=== PATIENT | male | born 1950 | race Caucasian/White ===

== ENCOUNTER → 2017-11-22 | Outpatient (CLI) | payer MEDICARE ==
--- NOTE | 2017-11-22 11:39 | US ---
EXAMINATION TYPE: US kidneys/renal and bladder DATE OF EXAM: 11/22/2017 COMPARISON: NONE CLINICAL HISTORY: N28.9 Disorder Of Kidney And Ureter. EXAM MEASUREMENTS: Right Kidney: 5.7 x 3.3 x 3.2 cm Left Kidney: 11.5 x 6.2 x 5.4 cm Right Kidney: small in size, cortical thinning, multiple cortical cysts with largest measuring 0.8cm Left Kidney: 1.5cm cyst inferior pole, visualization limited by rib shadowing Bladder: not fully distended, thickened irregular wall measuring 0.7cm Bilateral Jets seen: no Enlarged spleen There is no evidence for hydronephrosis at this point in time. No nephrolithiasis is seen. No joey s are identified. The urinary bladder is anechoic. Bilateral ureteral jets are seen. IMPRESSION: 1. Atrophic right kidney. 2. Simple cyst left kidney. Multiple cortical subcentimeter cyst right kidney. 3 splenomegaly. Spleen measures 13.8 cm craniocaudal.
--- NOTE | 2017-11-23 14:12 | US ---
EXAMINATION TYPE: US prostate transrectal DATE OF EXAM: 11/22/2017 COMPARISON: NONE CLINICAL HISTORY: N28.9 Disorder Of Kidney And Ureter. This examination was performed using the transrectal probe. EXAM MEASUREMENTS: Gland Size: 4.3 x 2.5 x 4.7cm Volume: 25.9ml Predicted PSA: 3.1 Actual PSA (if available):4.4 Mildly heterogeneous gland without any definite lesions seen at this time, multiple small calcificati ons seen within central zone. IMPRESSION: 1. No distinct lesion identified. Discordant actual PSA and predicted PSA. Continued monitoring recom mended. Consider tissue diagnosis if felt clinically indicated. Predicted PSA = volume x 0.12 ng/ml Calculated Volume = 0.5236 x L x W x H
== END | disposition home or self-care (01) ==
LOC: RADUSMAIN 08:21
PROVIDERS: ATTEND Family Medicine
DX: N28.1 Cyst of kidney, acquired (principal); N26.1 Atrophy of kidney (terminal); R97.20 Elevated prostate specific antigen [PSA]; R16.1 Splenomegaly, not elsewhere classified
CPT/HCPCS: 76770; 76872

== ENCOUNTER → 2017-12-20 | Outpatient (CLI) | payer MEDICARE ==
--- NOTE | 2017-12-20 09:38 | US ---
EXAMINATION TYPE: US scrotum with doppler. Grayscale and color Doppler Duplex imaging performed of franko lr scrotum. DATE OF EXAM: 12/20/2017 COMPARISON: NONE CLINICAL HISTORY: N40.1 Benign prostatic hyperplasia with lower.... Patient states hydrocele for 7 to 8 years EXAM MEASUREMENTS: TESTICLES: Right Testicle: 2.7 x 1.6 x 23 cm Left Testicle: 3.4 x 2.1 x 2.1 cm Doppler performed to assess for testicular vascularity; good bilateral color flow and waveforms are s een. There is no evidence of testicular torsion. Presence of hydroceles: Large ( 13.1 x 8.3 x 10.0 cm) hydrocele with loculated area. Left shows clark dence of loculated small hydrocele IMPRESSION: 1. Very large hydrocele. 2. Normal testicular blood flow
== END | disposition home or self-care (01) ==
LOC: RADUSWWP 07:38
PROVIDERS: ATTEND Urology
DX: N43.0 Encysted hydrocele (principal)
CPT/HCPCS: 76870; 93975

== ENCOUNTER 2018-06-04 08:24 | Day surgery (SDC) | payer MEDICARE ==
[2018-06-03 11:53] VITALS: BMI 21.7
[2018-06-04 08:42] VITALS: RESP 16; TEMP 97.3
[2018-06-04] MEDS ORDERED: LIDOCAINE 2% GEL 30 ML TUBE TOPICAL ONE (08:54)
[2018-06-04] MEDS ORDERED: BENZOCAINE SPRAY 1 CAN MUCOUS MEM ONE (08:54)
--- NOTE | 2018-06-04 09:02 | P.GSHP ---
History of Present Illness H&P Date: 06/04/18 Chief Complaint: Family history of esophageal cancer, GERD This a 67-year-old male referred from Osiris Dahl she's had complaints of GERD. He has a family history of esophageal cancer with his brother having esophageal cancer. He presents today for EGD. Past Medical History Past Medical History: GERD/Reflux Additional Past Medical History / Comment(s): gout, urinary retention, History of Any Multi-Drug Resistant Organisms: None Reported Past Surgical History: Hernia Repair Past Anesthesia/Blood Transfusion Reactions: No Reported Reaction Smoking Status: Never smoker - Past Family History Brother(s) Family Medical History: Cancer Father Family Medical History: Cancer Medications and Allergies Home Medications Medication Instructions Recorded Confirmed Type Milk Thistle Tab 240 mg PO BID 06/03/18 06/03/18 History Turericn Powder 1 applicate PO BID 06/03/18 06/03/18 History Allergies Allergy/AdvReac Type Severity Reaction Status Date / Time No Known Allergies Allergy Verified 06/04/18 08:33 Surgical - Exam Vital Signs Temp Pulse Resp BP Pulse Ox 97.3 F L 71 16 129/75 99 06/04/18 08:41 06/04/18 08:41 06/04/18 08:41 06/04/18 08:41 06/04/18 08:41 - General well developed, well nourished, no distress - Eyes PERRL - ENT normal pinna - Neck no masses - Respiratory normal expansion - Cardiovascular Rhythm: regular - Abdomen Abdomen: soft, non tender Assessment and Plan Assessment: GERD Family history of esophageal cancer We'll perform EGD.
--- NOTE | 2018-06-04 09:06 | P.OP ---
Date of Procedure: 06/04/18 Preoperative Diagnosis: GERD Family history of esophageal cancer Postoperative Diagnosis: Antral gastritis Small sliding hiatal hernia Mild esophagitis Procedure(s) Performed: EGD Anesthesia: MAC Surgeon: Myron Howe Pathology: other (Antrum, esophagus) Condition: stable Disposition: PACU Description of Procedure: The patient's placed on the endoscopy table lateral position. The patient did not wish to have IV sedation. He had Hurricaine spray applied to his oropharynx. The gastric scope was then placed oropharynx and passed into the esophagus and into the stomach. Scope was then placed through the pylorus. The first and second portion of the duodenum appeared normal. Scope was then brought back and stomach. The antrum was mildly inflamed. A biopsy was performed. The scope was then retroflexed and the remainder of the stomach appeared normal. There was a small sliding hiatal hernia. The GE junction was at 38 cm. The distal esophagus appeared mildly inflamed a biopsies performed. The proximal esophagus appeared normal. Scope was withdrawn for patient.
[2018-06-04 09:09] VITALS: BP 115/70; PULSE 68
== END 2018-06-04 09:36 | disposition home or self-care (01) ==
LOC: ORWHC2ENDO 08:24
PROVIDERS: ATTEND Surgery
DX: K29.50 Unspecified chronic gastritis without bleeding (principal); K21.0 Gastro-esophageal reflux disease with esophagitis; K44.9 Diaphragmatic hernia without obstruction or gangrene; Z80.0 Family history of malignant neoplasm of digestive organs; M10.9 Gout, unspecified; R33.9 Retention of urine, unspecified; Z79.899 Other long term (current) drug therapy
CPT/HCPCS: 43239; 88305

== ENCOUNTER → 2019-05-30 | Outpatient (CLI) | payer MEDICARE ==
--- NOTE | 2019-05-30 14:01 | US ---
EXAMINATION TYPE: US scrotum with doppler. Grayscale and color Doppler Duplex imaging performed of t adeline scrotum. DATE OF EXAM: 05/30/2019 COMPARISON: US 12/20/2017 CLINICAL HISTORY: N43.3 Hydrocele, unspecified. History of hydrocele. Pain and redness on the left. S welling. Patient states no one will drain the hydrocele EXAM MEASUREMENTS: TESTICLES: Right Testicle: 2.8 x 1.8 x 2.6 cm Left Testicle: 3.3 x 2.2 x 2.8 cm EPIDIDYMIS HEAD: Right Epididymis: Not visualized with certainty Left Epididymis: Not visualized with certainty Doppler performed to assess for testicular vascularity; good bilateral color flow and waveforms are s een. There is no evidence of testicular torsion. Presence of hydroceles: Yes, bilaterally Presence of varicoceles: Not visualized Anechoic area lateral to right testicle measuring 13.1 x 10.7 x 10.5 cm. Medial to the left testicle there is a complex, hypervascular area measuring 7.8 x 3.8 x 5.3 cm possible complex pyocele vs absce ss. Cystic area visualized left testicle measuring 0.4 x 0.4 x 0.5 cm. Left testicle is also hypervas cular IMPRESSION: 1. Large left complex pyocele or abscess on the left and left-sided orchitis. Findings were phoned to the ordering physician's office by the distribution agent Shira with recommendation for the patient to pro ceed to the ER at 1358 on 05/30/2019. 2. Intratesticular cystic lesion measures 5 mm, most commonly benign. Large right uncomplicated hydrocele.
== END | disposition home or self-care (01) ==
LOC: RADUSWWP 13:02
PROVIDERS: ATTEND Family Medicine
DX: N44.2 Benign cyst of testis (principal); N43.3 Hydrocele, unspecified
CPT/HCPCS: 76870; 93975

== ENCOUNTER → 2023-12-25 | Outpatient (CLI) | payer MEDICARE | END | disposition home or self-care (01) | LOC: LABWHC1 15:42 | PROVIDERS: ATTEND Family Medicine | DX: M10.9 Gout, unspecified (principal) | CPT/HCPCS: 36415; 84550 ==

== ENCOUNTER 2024-02-21 13:12 | Observation (INO) | payer MEDICARE ==
--- NOTE | 2024-02-21 13:36 | ED ---
Skin/Abscess/FB HPI - General Source: patient, RN notes reviewed Mode of arrival: ambulatory Limitations: no limitations <Ivone Vasquez - Last Filed: 02/21/24 13:34> - General Source: patient, RN notes reviewed, old records reviewed Mode of arrival: ambulatory Limitations: no limitations - History of Present Illness MD complaint: other (Significant swelling and edema of the left pinky finger) -: days(s) Location: L hand Severity scale (1-10): 10 Quality: constant Consistency: constant Improves with: none Worsens with: none Associated symptoms: denies other symptoms Treatments Prior to Arrival: none <Enrico Almeida - Last Filed: 02/27/24 18:29> - General Chief complaint: Skin/Abscess/Foreign Body Stated complaint: R Finger Infection Time Seen by Provider: 02/21/24 13:31 - History of Present Illness Initial comments: Quick [id number] male with a history of gout on allopurinol and colchicine presenting to the emergency department chief complaint of fifth digit erythema, pain and edema that has been worsening over the past 2 days. He denies fevers, chills, nausea, vomiting. (Ivone Vasquez) This is a 73-year-old male with history of gout coming in with significant left pinky finger swelling pain edema redness and tenderness with decreased range of motion (Enrico Almeida) - Related Data Home Medications Medication Instructions Recorded Confirmed Colchicine 0.6 mg PO BID 02/21/24 02/21/24 allopurinoL [Zyloprim] 450 mg PO DAILY 02/21/24 02/21/24 Allergies Allergy/AdvReac Type Severity Reaction Status Date / Time No Known Allergies Allergy Verified 02/21/24 19:13 Review of Systems ROS Other: All systems not noted in ROS Statement are negative. <Ivone Vasquez - Last Filed: 02/21/24 13:34> ROS Other: All systems not noted in ROS Statement are negative. <Enrico Almeida - Last Filed: 02/27/24 18:29> ROS Statement: Those systems with pertinent positive or pertinent negative responses have been documented in the HPI. Past Medical History Past Medical History: GERD/Reflux Additional Past Medical History / Comment(s): gout, urinary retention, History of Any Multi-Drug Resistant Organisms: None Reported Past Surgical History: Hernia Repair Additional Past Surgical History / Comment(s): right wrist Past Anesthesia/Blood Transfusion Reactions: No Reported Reaction Past Psychological History: No Psychological Hx Reported Smoking Status: Never smoker Past Alcohol Use History: Daily Past Drug Use History: Marijuana - Past Family History Brother(s) Family Medical History: Cancer Father Family Medical History: Cancer <StielerNikhilIvone - Last Filed: 02/21/24 13:34> General Exam Limitations: no limitations <StielerIvone - Last Filed: 02/21/24 13:34> General appearance: alert, in no apparent distress Head exam: Present: atraumatic, normocephalic, normal inspection Eye exam: Present: normal appearance, PERRL, EOMI. Absent: scleral icterus, conjunctival injection, periorbital swelling ENT exam: Present: normal exam, mucous membranes moist Neck exam: Present: normal inspection. Absent: tenderness, meningismus, lymphadenopathy Respiratory exam: Present: normal lung sounds bilaterally. Absent: respiratory distress, wheezes, rales, rhonchi, stridor Cardiovascular Exam: Present: regular rate, normal rhythm, normal heart sounds. Absent: systolic murmur, diastolic murmur, rubs, gallop, clicks GI/Abdominal exam: Present: soft, normal bowel sounds. Absent: distended, tenderness, guarding, rebound, rigid Extremities exam: Present: normal inspection, full ROM, normal capillary refill. Absent: tenderness, pedal edema, joint swelling, calf tenderness Back exam: Present: normal inspection Neurological exam: Present: alert, oriented X3, CN II-XII intact Psychiatric exam: Present: normal affect, normal mood Skin exam: Present: warm, dry, intact, normal color. Absent: rash <Enrico Almeida - Last Filed: 02/27/24 18:29> - General Exam Comments Initial Comments: Visual Physical Exam Vital signs reviewed General: Well-appearing, nontoxic, no acute distress. Head: Normocephalic, atraumatic Eyes: PERRLA, EOMI ENT: Airway patent Chest: Nonlabored breathing Skin: No visual rash, normal skin tone Neuro: Alert and oriented 3 Musculoskeletal: No gross abnormalities (Stieler,Ivone) Course <Enrico Almeida - Last Filed: 02/27/24 18:29> Vital Signs 02/21/24 02/21/24 13:28 19:22 Temperature 98.5 F Pulse Rate 75 78 Respiratory 16 18 Rate Blood Pressure 138/79 125/70 O2 Sat by Pulse 100 96 Oximetry - Reevaluation(s) Reevaluation #1: 02/21/24 18:52 Medical record is reviewed (Enrico Almeida) Reevaluation #2: 02/21/24 18:52 Patient symptoms unchanged (Enrico Almeida) Reevaluation #3: 02/21/24 18:52 Patient informed of results and questions answered (Enrico Almeida) Reevaluation #4: 02/21/24 18:53 Was pt. sent in by a medical professional or institution (ISAK Godinez, DIRECTOR OF PARTNER MARKETING, urgent care, hospital, or longterm...) When possible be specific @ -no Did you speak to anyone other than the patient for history (EMS, parent, family, police, friend...)? What history was obtained from this source @ -no Did you review nursing and triage notes (agree or disagree)? Why? @ -agree Are old charts reviewed (outside hosp., previous admission, EMS record, old EKG, old radiological studies, urgent care reports/EKG's, longterm records)? Report findings @ -yes Differential Diagnosis (chest pain, altered mental status, abdominal pain women, abdominal pain men, vaginal bleeding, weakness, fever, dyspnea, syncope, head ache, dizziness, GI bleed, back pain, seizure, CVA, palpatations, mental health, musculoskeletal)? @ -prior EKG interpreted by me (3pts min.). @ -no X-rays interpreted by me (1pt min.). @ -yes negative for acute disease CT interpreted by me (1pt min.). @ -no U/S interpreted by me (1pt. min.). @ -no What testing was considered but not performed or refused? (CT, X-rays, U/S, labs)? Why? @ -none What meds were considered but not given or refused? Why? @ -none Did you discuss the management of the patient with other professionals (professionals i.e. ISAK Godinez, DIRECTOR OF PARTNER MARKETING, lab, RT, psych nurse, social service assistant, special effects artist, teacher, hydrological technical officer, showcase trimmer)? Give summary @ -no Was smoking cessation discussed for >3mins.? @ -no Was critical care preformed (if so, how long)? @ -no Were there social determinants of health that impacted care today? How? (Homelessness, low income, unemployed, alcoholism, drug addiction, transportation, low edu. Level, literacy, decrease access to med. care, snf, rehab)? @ -none Was there de-escalation of care discussed even if they declined (Discuss DNR or withdrawal of care, Hospice)? DNR status @ -no What co-morbidities impacted this encounter? (DM, HTN, Smoking, COPD, CAD, Cancer, CVA, ARF, Chemo, Hep., AIDS, mental health diagnosis, sleep apnea, morb id obesity)? @ -none Was patient admitted / discharged? Hospital course, mention meds given and rou te, prescriptions, significant lab abnormalities, going to OR and other pertinent info. @ - 73 male to the ER for evaluation of significant left hand pain significant left pinky finger swelling redness, erythema or tenderness. Patient has findings and significant cellulitis need for orthopedic consultation for possible I&D of abscess. Patient be admitted for IV antibiotics Admitted Undiagnosed new problem with uncertain prognosis? @ -no Drug Therapy requiring intensive monitoring for toxicity (Heparin, Nitro, Insulin, Cardizem)? @ -no Were any procedures done? @ -no Diagnosis/symptom? @ -Pinky finger cellulitis versus inflammatory or infectious gout Acute, or Chronic, or Acute on Chronic? @ -Acute Uncomplicated (without systemic symptoms) or Complicated (systemic symptoms)? @ -Complicated Side effects of treatment? @ -no Exacerbation, Progression, or Severe Exacerbation? @ -exacerbation Poses a threat to life or bodily function? How? (Chest pain, [place], [place], pneumonia, PE, COPD, DKA, ARF, appy, cholecystitis, CVA, Diverticulitis, Homicidal, Suicidal, threat to staff... and all critical care pts) @ -no (Enrico Almeida) Medical Decision Making <Ivone Vasquez - Last Filed: 02/21/24 13:34> - Lab Data Result diagrams: 02/22/24 04:31 02/22/24 04:31 - Radiology Data Radiology results: report reviewed (X-ray fingers concerning for osteomyelitis), image reviewed <Enrico Almeida - Last Filed: 02/27/24 18:29> - Medical Decision Making I completed the quick note portion of this chart signed Ivone Vasquez PA-C (Ivone Vasquez) 73 male to the ER for evaluation of significant left hand pain significant left pinky finger swelling redness, erythema or tenderness. Patient has findings and significant cellulitis need for orthopedic consultation for possible I&D of abscess. Patient be admitted for IV antibiotics (Enrico Almeida) Critical Care Time Critical Care Time: Yes Total Critical Care Time: 31 <Enrico Almeida - Last Filed: 02/27/24 18:29> Disposition <Ivone Vasquez - Last Filed: 02/21/24 13:34> Is patient prescribed a controlled substance at d/c from ED?: No Time of Disposition: 19:00 <Enrico Almeida - Last Filed: 02/27/24 18:29> Clinical Impression: Cellulitis of left little finger, Gout, Osteomyelitis Disposition: ADMITTED IP TO THIS HOSP Condition: Serious
--- NOTE | 2024-02-21 14:56 | XR ---
EXAMINATION TYPE: XR finger RT DATE OF EXAM: 02/21/2024 CLINICAL HISTORY: pain TECHNIQUE: 3 views of the right digit are submitted. COMPARISON: None FINDINGS: Extensive soft tissue swelling is seen. There is bone destruction of the middle phalanx as well as the head of the proximal phalanx and base of the distal phalanx. Findings are highly suggesti ve of osteomyelitis. IMPRESSION: Bony destructive process highly suggestive of osteomyelitis. Correlate clinically. [facility], , 02/21/2024 2:54 PM
[2024-02-21] MEDS ORDERED: MORPHINE SULFATE 4 MG/ML SYRINGE IV PRN (18:47)
[2024-02-21] MEDS ORDERED: ONDANSETRON 4 MG/2 ML VIAL IVP PRN (18:47)
[2024-02-21] MEDS ORDERED: NALOXONE 0.4 MG/ML 1 ML VIAL IV PRN (18:47)
[2024-02-21 19:34] LABS: Anisocytosis Slight; Basophils % (A) 0 %; Eosinophils # (A) 0.1 k/uL (0-0.7); Eosinophils % (A) 2 %; HCT 38.9 % (39.0-53.0); HGB 12.4 gm/dL (13.0-17.5); Lymphocytes # (A) 0.6 k/uL (1.0-4.8); Lymphocytes % (A) 12 %; MCH 30.4 pg (25.0-35.0); MCHC 31.8 g/dL (31.0-37.0); MCV 95.6 fL (80.0-100.0); Macrocytosis Slight; Mean Platelet Volume 8.1; Monocytes # (A) 0.3 k/uL (0-1.0); Monocytes % (A) 6 %; Neutrophils # (A) 4.2 k/uL (1.3-7.7); Neutrophils % (A) 78 %; Platelet Count 459 k/uL (150-450); Poikilocytosis Slight; RBC 4.07 m/uL (4.30-5.90); RDW 18.9 % (11.5-15.5); WBC 5.4 k/uL (3.8-10.6)
[2024-02-21] MEDS: MORPHINE SULFATE 4 MG/ML SYRINGE IV STA (19:42)
[2024-02-21] MEDS: SODIUM CHLORIDE 0.9% 1,000 ML IV SCH (19:42)
[2024-02-21 19:55] LABS: ALT 31 U/L (4-49); AST 40 U/L (17-59); African American GFR (CKD) 74 (>60 ml/min/1.73 sqM); Albumin 4.3 g/dL (3.5-5.0); Alkaline Phosphatase 88 U/L (38-126); Anion Gap 6 mmol/L; Blood Urea Nitrogen 23 mg/dL (9-20); C Reactive Protein 2.1 mg/dL (<1.0); Calcium 9.2 mg/dL (8.4-10.2); Carbon Dioxide 25 mmol/L (22-30); Chloride 108 mmol/L (98-107); Glucose 87 mg/dL (74-99); Non-African American GFR(CKD) 64 (>60 ml/min/1.73 sqM); Potassium 4.3 mmol/L (3.5-5.1); Sodium 139 mmol/L (137-145); Total Bilirubin 0.6 mg/dL (0.2-1.3); Total Protein 7.9 g/dL (6.3-8.2)
[2024-02-21 21:31] LABS: Phosphorus 4.1 mg/dL (2.5-4.5); Uric Acid 4.6 mg/dL (3.5-8.5)
[2024-02-22 07:33] VITALS: RESP 16
[2024-02-22 09:12] LABS: Basophils # (A) 0.02 X 10*3/uL (0.00-0.10); Basophils % (A) 0.4 %; Eosinophils % (A) 1.8 %; HCT 30.4 % (39.6-50.0); HGB 10.2 g/dL (13.0-17.0); Lymphocytes # (A) 0.74 X 10*3/uL (0.90-5.00); Lymphocytes % (A) 13.2 %; MCH 33.1 pg (27.0-32.0); MCHC 33.6 g/dL (32.0-37.0); MCV 98.7 FL (80.0-97.0); Mean Platelet Volume 9.9 FL (9.5-12.2); Monocytes # (A) 0.47 X 10*3/uL (0.20-1.00); Monocytes % (A) 8.4 %; NRBC Per 100 WBC 0 X 10*3/uL (0.00-0.01); Neutrophils # (A) 4.22 X 10*3/uL (1.80-7.70); Neutrophils % (A) 75.3 %; Platelet Count 337 X 10*3/uL (140-440); RBC 3.08 X 10*6/uL (4.40-5.60); RDW 17.7 % (11.5-14.5)
[2024-02-22 09:17] LABS: ALT 31 U/L (10-49); AST 37 U/L (14-35); Albumin 3.5 g/dL (3.8-4.9); Alkaline Phosphatase 77 U/L (41-126); BUN/Creat Ratio 20.91 Ratio (12.00-20.00); Calcium 8.5 mg/dL (8.7-10.3); Carbon Dioxide 21.2 mmol/L (21.6-31.8); Chloride 107 mmol/L (96-109); Globulin 2.5 g/dL (1.6-3.3); Glucose 77 mg/dL (70-110); Sodium 140 mmol/L (135-145); Total Bilirubin 0.3 mg/dL (0.3-1.2)
[2024-02-22 09:28] LABS: Erythrocyte Sedimentation Rate 65 mm/Hr (0-20)
--- NOTE | 2024-02-22 12:10 | P.CNOR ---
History of Present Illness - [facility] Consult date: 02/22/24 Requesting physician: Enrico Almeida Consult reason: joint pain (Right pinky finger pain, swelling, and erythema w/history of gout) History of present illness: Patient is a very pleasant 73-year-old male who is seen examined the bedside for further evaluation of his right pinky finger. Patient has a significant history of gout with gouty bony changes at his bilateral hands and fingers. He previously underwent right wrist gouty debulking on 09/12/[address] Frazier. Lissy kincaid to being seen and examined at the bedside he has had x-ray imaging taken of his right pinky finger. Patient does utilize allopurinol and colchicine in the outpatient setting. He states over the past 2 days he has began to experience significant pain and swelling at his right pinky finger without injury. He has difficulty with active range of motion of his right pinky finger. He states the pain will keep him up at night. His right pinky finger is significantly swollen and erythematous. Patient states he was previously discussed he may need an amputation of his right pinky finger in the future. He has been seen and examined by infectious disease today who will start him on antibiotic medication. They are recommending I&D with culture. Depending on culture results infectious disease will modify their antibiotic regimen. Patient has no other complaints at the bedside. Denies fever or chills. He is admitted to medicine. Past Medical History Past Medical History: GERD/Reflux Additional Past Medical History / Comment(s): gout, urinary retention, History of Any Multi-Drug Resistant Organisms: None Reported Past Surgical History: Hernia Repair Additional Past Surgical History / Comment(s): right wrist Past Anesthesia/Blood Transfusion Reactions: No Reported Reaction Past Psychological History: No Psychological Hx Reported Smoking Status: Never smoker Past Alcohol Use History: Daily Additional Past Alcohol Use History / Comment(s): 4-5 beers daily Past Drug Use History: Marijuana Additional Drug Use History / Comment(s): occ use - Past Family History Brother(s) Family Medical History: Cancer Father Family Medical History: Cancer Medications and Allergies Home Medications Medication Instructions Recorded Confirmed Type Colchicine 0.6 mg PO BID 02/21/24 02/21/24 History allopurinoL [Zyloprim] 450 mg PO DAILY 02/21/24 02/21/24 History Allergies Allergy/AdvReac Type Severity Reaction Status Date / Time No Known Allergies Allergy Verified 02/21/24 19:13 Physical Examination Physical Exam: Patient is awake, alert, and oriented 3 Vital signs stable Good chest excursion with deep inspiration and expiration Significant erythema and swelling over the entire right pinky finger extending near the metacarpal phalangeal joint Patient is unable to bend his right pinky finger Evidence of significant bony change in the bilateral hands with evidence of gouty change patient is able to perform active range of motion of his right wrist and right elbow without difficulty Results Pertinent studies: X-rays of the right pinky finger taken on 02/21/2024: Extensive soft tissue swelling; bony destruction of the middle phalanx as well as the head of the proximal phalanx and base of the distal phalanx in which findings are highly suggestive of osteomyelitis - Labs Labs: Abnormal Lab Results - Last 24 Hours (Table) 02/21/24 02/21/24 02/22/24 Range/Units 19:03 19:03 04:31 RBC 4.07 L 3.08 L (4.30-5.90) m/uL Hgb 12.4 L 10.2 L (13.0-17.5) gm/dL Hct 38.9 L 30.4 L (39.0-53.0) % MCV 98.7 H (80.0-97.0) FL MCH 33.1 H (27.0-32.0) pg RDW 18.9 H 17.7 H (11.5-15.5) % Plt Count 459 H (150-450) k/uL Immature Gran # 0.05 H (0.00-0.04) X 10*3/uL Lymphocytes # 0.6 L 0.74 L (1.0-4.8) k/uL ESR 65 H (0-20) mm/Hr Chloride 108 H (98-107) mmol/L Carbon Dioxide (21.6-31.8) mmol/L BUN 23 H (9-20) mg/dL BUN/Creatinine Ratio (12.00-20.00) Ratio Calcium (8.7-10.3) mg/dL AST (14-35) U/L C-Reactive Protein 2.1 H (<1.0) mg/dL Total Protein (6.2-8.2) g/dL Albumin (3.8-4.9) g/dL Albumin/Globulin Ratio (1.60-3.17) Ratio 02/22/24 Range/Units 04:31 RBC (4.30-5.90) m/uL Hgb (13.0-17.5) gm/dL Hct (39.0-53.0) % MCV (80.0-97.0) FL MCH (27.0-32.0) pg RDW (11.5-15.5) % Plt Count (150-450) k/uL Immature Gran # (0.00-0.04) X 10*3/uL Lymphocytes # (1.0-4.8) k/uL ESR (0-20) mm/Hr Chloride (98-107) mmol/L Carbon Dioxide 21.2 L (21.6-31.8) mmol/L BUN (9-20) mg/dL BUN/Creatinine Ratio 20.91 H (12.00-20.00) Ratio Calcium 8.5 L (8.7-10.3) mg/dL AST 37 H (14-35) U/L C-Reactive Protein (<1.0) mg/dL Total Protein 6.0 L (6.2-8.2) g/dL Albumin 3.5 L (3.8-4.9) g/dL Albumin/Globulin Ratio 1.40 L (1.60-3.17) Ratio H & H 02/21/24 02/22/24 Range/Units 19:03 04:31 Hgb 12.4 L 10.2 L (13.0-17.5) gm/dL Hct 38.9 L 30.4 L (39.0-53.0) % Result Diagrams: 02/22/24 04:31 02/22/24 04:31 Assessment and Plan Assessment: Assessment: Right pinky finger pain, swelling, and erythema Extensive soft tissue swelling of the right pinky finger Reduced range of motion of right pinky finger Bony destruction of right middle phalanx as well as head of proximal phalanx and base of distal phalanx of the pinky finger Bony destruction suggestive of osteomyelitis History of gout History of gouty debulking on 09/12/2023 (1) Finger pain, right Status: Acute Code(s): M79.644 - PAIN IN RIGHT FINGER(S) SNOMED Code(s): 25124706 (2) Swelling of right little finger Status: Acute Code(s): M79.89 - OTHER SPECIFIED SOFT TISSUE DISORDERS SNOMED Code(s): 27252883716539024 (3) Gout Status: Acute Code(s): M10.9 - GOUT, UNSPECIFIED SNOMED Code(s): 71410161 (4) Osteomyelitis Status: Acute Code(s): M86.9 - OSTEOMYELITIS, UNSPECIFIED SNOMED Code(s): 14337438 Plan: Plan: 1. Over the past 2 days the patient has experiencing worsening and significant pain and swelling at his right pinky finger without injury. He has difficulty with active range of motion of his right pinky finger. He states the pain will keep him up at night. His right pinky finger is significantly swollen and erythematous. X-ray imaging shows evidence of bony destruction of right middle phalanx as well as head of proximal phalanx and base of distal phalanx of the pinky finger. Patient has a significant history for gout and utilizes colchicine and allopurinol in the outpatient setting. He has a history of gouty debulking performed on 09/12/2023 at the right wrist. Patient has been discussed in detail with Dr. Montana Dunlap who will see the patient at the bedside. Will adjust the plan of care according to his recommendations. Patient was seen and examined with the physician assistant professor nurse education, I agree with the above history and exam. Patient with a baseline of multiple gouty nodules that have previously been surgically debrided by another surgeon. At baseline he has chronic swelling to his right small finger, he noted some acute increase in swelling over the past few days, however patient remains able to actively flex and extend at the MP joint without pain patient has minimal tenderness throughout the digit the finger is firm to touch there is no area of overt fluctuance noted, as detailed above and aspiration was attempted with a large gauge needle and no fluid was able to be obtained however the resultant bleeding from the aspiration site was noted to contain crystals. 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 Time with Patient: Greater than 30 (Including obtaining history, physical examination, reviewing of imaging, and dictation.)
[2024-02-22] MEDS ORDERED: VANCOMYCIN IV PER PHARMACY 1 EACH MISC MISCELLANE PRN (13:13)
[2024-02-22] MEDS: AMPICILLIN-SULBACTAM 3 GM in SODIUM CHLORIDE 0.9% 100 ML IVPB SCH (13:56)
[2024-02-22 14:40] VITALS: BP 129/73; PULSE 81; TEMP 98.5
[2024-02-22] MEDS: VANCOMYCIN 1,000 MG in SODIUM CHLORIDE 0.9% 250 ML IVPB ONE (15:02)
[2024-02-22] MEDS: DEXAMETHASONE SOD PHOSPHATE 10 MG/ML 1 ML VIAL IVP STA (15:02)
[2024-02-22] MEDS ORDERED: LORazepam 2 MG/ML INJ IV PRN ×3 (15:06)
--- NOTE | 2024-02-22 15:39 | P.HPIM ---
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 Frazier, urinary retention, gastroesophageal reflux disease, marijuana use, daily alcohol use with 4-5 beers daily and multiple other medical issues.His home meds include colchicine and allopurinol, reports regular home testing of his uric acid level. Reports he has endured exacerbations of his right pinky on and off over the last 6 years. States on Sunday began to have significant swelling and progressive pain with limited mobility of the affected digit. Proceeded to urgent care, further directed to the ER. Denies injury or trauma of the affected extremity. X-ray reported bony destructive process highly suggestive of osteomyelitis. Afebrile, normal WBC. CRP 2.1. maintained on IV fluid hydration, antibiotics. Electrolytes, renal function, coags within normal limits. Review of Systems ROS Statement: Those systems with pertinent positive or pertinent negative responses have been documented in the HPI. ROS Other: All systems not noted in ROS Statement are negative. Past Medical History Past Medical History: GERD/Reflux Additional Past Medical History / Comment(s): gout, urinary retention, History of Any Multi-Drug Resistant Organisms: None Reported Past Surgical History: Hernia Repair Additional Past Surgical History / Comment(s): right wrist Past Anesthesia/Blood Transfusion Reactions: No Reported Reaction Past Psychological History: No Psychological Hx Reported Smoking Status: Never smoker Past Alcohol Use History: Daily Additional Past Alcohol Use History / Comment(s): 4-5 beers daily Past Drug Use History: Marijuana Additional Drug Use History / Comment(s): occ use - Past Family History Brother(s) Family Medical History: Cancer Father Family Medical History: Cancer Medications and Allergies Home Medications Medication Instructions Recorded Confirmed Type Colchicine 0.6 mg PO BID 02/21/24 02/21/24 History allopurinoL [Zyloprim] 450 mg PO DAILY 02/21/24 02/21/24 History Allergies Allergy/AdvReac Type Severity Reaction Status Date / Time No Known Allergies Allergy Verified 02/21/24 19:13 Physical Exam Vitals: Vital Signs Temp Pulse Pulse Resp BP BP BP 02/22/24 06:56 97.4 F L 70 16 110/61 02/22/24 01:51 98.4 F 87 17 117/64 02/21/24 20:45 98.0 F 67 17 120/72 02/21/24 20:18 67 17 02/21/24 19:22 78 18 125/70 02/21/24 13:28 98.5 F 75 16 138/79 Pulse Ox 02/22/24 06:56 97 02/22/24 01:51 98 02/21/24 20:45 96 02/21/24 20:18 02/21/24 19:22 96 02/21/24 13:28 100 Intake and Output 02/21/24 02/22/24 02/22/24 22:59 06:59 14:59 Other: Voiding Method Self-Catheterization Self-Catheterization Self-Catheterization # Voids 1 Weight 56.699 kg PHYSICAL EXAM: VITAL SIGNS: [Reviewed] GENERAL: Alert and oriented x 3, sitting up in bed, no acute distress HEENT: Normocephalic, atraumatic, conjunctivae normal. eyes normal. MMM. NECK: Supple, no JVD. No thyroid enlargement. No LNs CARDIOVASCULAR: S1, S2 regular.. No murmur RESPIRATION: Unlabored, equal air entry, clear to auscultation. ABDOMEN: Soft, nondistended, nontender . No guarding. no masses palpable. Positive bowel sounds. Extremities: Bony gouty change present of bilateral hands .right hand fifth digit stiff with significant edema ,erythema and tenderness with tiny dry opening on the underside , nondraining .no lower extremity edema. no swelling NERVOUS SYSTEM: Cranial N 2-12 grossly normal.No focal deficits. Strength and sensation grossly intact. Skin: Warm and dry, no rash Results CBC & Chem 7: 02/22/24 04:31 02/22/24 04:31 Labs: Abnormal Lab Results - Last 24 Hours (Table) 02/21/24 02/21/24 02/22/24 Range/Units 19:03 19:03 04:31 RBC 4.07 L 3.08 L (4.30-5.90) m/uL Hgb 12.4 L 10.2 L (13.0-17.5) gm/dL Hct 38.9 L 30.4 L (39.0-53.0) % MCV 98.7 H (80.0-97.0) FL MCH 33.1 H (27.0-32.0) pg RDW 18.9 H 17.7 H (11.5-15.5) % Plt Count 459 H (150-450) k/uL Immature Gran # 0.05 H (0.00-0.04) X 10*3/uL Lymphocytes # 0.6 L 0.74 L (1.0-4.8) k/uL ESR 65 H (0-20) mm/Hr Chloride 108 H (98-107) mmol/L Carbon Dioxide (21.6-31.8) mmol/L BUN 23 H (9-20) mg/dL BUN/Creatinine Ratio (12.00-20.00) Ratio Calcium (8.7-10.3) mg/dL AST (14-35) U/L C-Reactive Protein 2.1 H (<1.0) mg/dL Total Protein (6.2-8.2) g/dL Albumin (3.8-4.9) g/dL Albumin/Globulin Ratio (1.60-3.17) Ratio // Range/Units 04:31 RBC (4.30-5.90) m/uL Hgb (13.0-17.5) gm/dL Hct (39.0-53.0) % MCV (80.0-97.0) FL MCH (27.0-32.0) pg RDW (11.5-15.5) % Plt Count (150-450) k/uL Immature Gran # (0.00-0.04) X 10*3/uL Lymphocytes # (1.0-4.8) k/uL ESR (0-20) mm/Hr Chloride (98-107) mmol/L Carbon Dioxide 21.2 L (21.6-31.8) mmol/L BUN (9-20) mg/dL BUN/Creatinine Ratio 20.91 H (12.00-20.00) Ratio Calcium 8.5 L (8.7-10.3) mg/dL AST 37 H (14-35) U/L C-Reactive Protein (<1.0) mg/dL Total Protein 6.0 L (6.2-8.2) g/dL Albumin 3.5 L (3.8-4.9) g/dL Albumin/Globulin Ratio 1.40 L (1.60-3.17) Ratio Thrombosis Risk Factor Assmnt - Choose All That Apply Any of the Below Risk Factors Present?: No Other Risk Factors: Yes Each Risk Factor Represents 2 Points: Age 61-74 years Other congenital or acquired thrombophilia - If yes, enter type in comment: No Thrombosis Risk Factor Assessment Total Risk Factor Score: 2 Thrombosis Risk Factor Assessment Level: Low Risk Assessment and Plan Assessment: Right fifth digit pain with inflammation, erythema & tenderness ,x-ray suggest osteomyelitis, possible abscess, in a patient with history of gout Recent right wrist gouty debulking on 09/12/[address] Frazier Gastroesophageal reflux disease Urinary retention, history of Daily alcohol use, 4-5 beers daily reported Marijuana use Plan: Continue on current medication regimen ,monitoring symptomatic treatment. IV fluid hydration. ProCalcitonin ordered. antibiotics as per ID. Orthopedic surgery consulted. Pain management. CIWA protocol. Alcohol abstinence reinforced. PPI for GI prophylaxis. The impression and plan of care has been dictated as directed. : I performed a history and examination of this patient, discussed the same with the dictator. I agree with the dictator's note ,documented as a scribe. Any additional findings or plans will be noted.
[2024-02-22] MEDS: PANTOPRAZOLE 40 MG/10 ML VIAL IVP SCH (17:08)
[2024-02-22] MEDS: MULTIVITAMINS, THERA 1 EACH TAB PO SCH (17:08)
[2024-02-23] MEDS ORDERED: VANCOMYCIN 1,000 MG in SODIUM CHLORIDE 0.9% 250 ML IVPB SCH (04:00)
[2024-02-23] MEDS ORDERED: THIAMINE 100 MG TAB PO SCH (09:00)
[2024-02-23] MEDS ORDERED: methylPREDNISolone 4 MG TAB TAPER PO SCH (09:00)
--- NOTE | 2024-02-23 13:18 | P.CONS ---
History of Present Illness - Reason for Consult Consult date: 02/22/24 Possible osteo Requesting physician: Viki Antunez - Chief Complaint Right fifth finger swelling and redness x days - History of Present Illness Patient is a 73-year-old male with a past medical history significant for reflux gout current everyday drinker presented to the hospital for worsening pain swelling redness to the right fifth finger, patient mention he did have a issues with a small wound on the palmar aspect of the last month or 2 that seem to have subsequently healed however over the last 2 days noticed to have increasing swelling and redness to the right fifth finger patient did have some dull aching pain without any radiation patient denies high-grade fever or any chills patient denies having any chest pain or shortness of breath or cough no nausea vomiting no abdominal pain and no diarrhea on presentation the hospital the patient was afebrile and no fever have recorded subsequently patient white count is 5.60 with a left shift creatinine is 1.1 liver enzymes are normal uric acid is 4.6 blood culture culture currently pending he did have x-rays of the finger that have been suggested bony destruction highly suggestive of osteomyeli tis correlate clinically patient was admitted to hospital infectious he was consulted for further management of antibiotic therapy Review of Systems Positive point and negatives has been mentioned in the HPI, complete review of systems was performed and all other systems are negative Past Medical History Past Medical History: GERD/Reflux Additional Past Medical History / Comment(s): gout, urinary retention, History of Any Multi-Drug Resistant Organisms: None Reported Past Surgical History: Hernia Repair Additional Past Surgical History / Comment(s): right wrist Past Anesthesia/Blood Transfusion Reactions: No Reported Reaction Past Psychological History: No Psychological Hx Reported Smoking Status: Never smoker Past Alcohol Use History: Daily Additional Past Alcohol Use History / Comment(s): 4-5 beers daily Past Drug Use History: Marijuana Additional Drug Use History / Comment(s): occ use - Past Family History Brother(s) Family Medical History: Cancer Father Family Medical History: Cancer Medications and Allergies Home Medications Medication Instructions Recorded Confirmed Type Colchicine 0.6 mg PO BID 02/21/24 02/21/24 History allopurinoL [Zyloprim] 450 mg PO DAILY 02/21/24 02/21/24 History Allergies Allergy/AdvReac Type Severity Reaction Status Date / Time No Known Allergies Allergy Verified 02/21/24 19:13 Physical Exam Vitals: Vital Signs Temp Pulse Pulse Resp BP BP BP 02/22/24 06:56 97.4 F L 70 16 110/61 02/22/24 01:51 98.4 F 87 17 117/64 02/21/24 20:45 98.0 F 67 17 120/72 02/21/24 20:18 67 17 02/21/24 19:22 78 18 125/70 02/21/24 13:28 98.5 F 75 16 138/79 Pulse Ox 02/22/24 06:56 97 02/22/24 01:51 98 02/21/24 20:45 96 02/21/24 20:18 02/21/24 19:22 96 02/21/24 13:28 100 Intake and Output 02/21/24 02/22/24 02/22/24 22:59 06:59 14:59 Other: Voiding Method Self-Catheterization Self-Catheterization Self-Catheterization # Voids 1 Weight 56.699 kg GENERAL DESCRIPTION: Elderly male lying in bed, no distress. No tachypnea or accessory muscle of respiration use. HEENT: Shows Pallor , no scleral icterus. Oral mucous membrane is dry. No pharyngeal erythema or thrush NECK: Trachea central, no thyromegaly. LUNGS: Unlabored breathing. Clear to auscultation anteriorly. No wheeze or crackle. HEART: S1, S2, regular rate and rhythm. No loud murmur ABDOMEN: Soft, no tenderness , guarding or rigidity, no organomegaly EXTREMITIES: Right fifth finger did have significant swelling and redness which is tender to touch SKIN: No rash, no masses palpable. NEUROLOGICAL: The patient is awake, alert, oriented x3, mood and affect normal. Results CBC & Chem 7: 02/22/24 04:31 02/22/24 04:31 Labs: Abnormal Lab Results - Last 24 Hours (Table) 02/21/24 02/21/24 02/22/24 Range/Units 19:03 19:03 04:31 RBC 4.07 L 3.08 L (4.30-5.90) m/uL Hgb 12.4 L 10.2 L (13.0-17.5) gm/dL Hct 38.9 L 30.4 L (39.0-53.0) % MCV 98.7 H (80.0-97.0) FL MCH 33.1 H (27.0-32.0) pg RDW 18.9 H 17.7 H (11.5-15.5) % Plt Count 459 H (150-450) k/uL Immature Gran # 0.05 H (0.00-0.04) X 10*3/uL Lymphocytes # 0.6 L 0.74 L (1.0-4.8) k/uL ESR 65 H (0-20) mm/Hr Chloride 108 H (98-107) mmol/L Carbon Dioxide (21.6-31.8) mmol/L BUN 23 H (9-20) mg/dL BUN/Creatinine Ratio (12.00-20.00) Ratio Calcium (8.7-10.3) mg/dL AST (14-35) U/L C-Reactive Protein 2.1 H (<1.0) mg/dL Total Protein (6.2-8.2) g/dL Albumin (3.8-4.9) g/dL Albumin/Globulin Ratio (1.60-3.17) Ratio 02/21/ Range/Units 04:31 RBC (4.30-5.90) m/uL Hgb (13.0-17.5) gm/dL Hct (39.0-53.0) % MCV (80.0-97.0) FL MCH (27.0-32.0) pg RDW (11.5-15.5) % Plt Count (150-450) k/uL Immature Gran # (0.00-0.04) X 10*3/uL Lymphocytes # (1.0-4.8) k/uL ESR (0-20) mm/Hr Chloride (98-107) mmol/L Carbon Dioxide 21.2 L (21.6-31.8) mmol/L BUN (9-20) mg/dL BUN/Creatinine Ratio 20.91 H (12.00-20.00) Ratio Calcium 8.5 L (8.7-10.3) mg/dL AST 37 H (14-35) U/L C-Reactive Protein (<1.0) mg/dL Total Protein 6.0 L (6.2-8.2) g/dL Albumin 3.5 L (3.8-4.9) g/dL Albumin/Globulin Ratio 1.40 L (1.60-3.17) Ratio Assessment and Plan (1) Abscess of right little finger Status: Acute Code(s): L02.511 - CUTANEOUS ABSCESS OF RIGHT HAND SNOMED Co de(s): 27987578741754629 (2) Swelling of right little finger Status: Acute Code(s): M79.89 - OTHER SPECIFIED SOFT TISSUE DISORDERS SNOMED Code(s): 67949871740181901 Plan: 1patient presenting significant swelling and redness to the right fifth finger in this patient who did have a history of gout however current swelling and redness is out of the proportion to be considered only related to the gout and underlying infection need to be rule out especially with significant worsening over the last 2 days. 2discussed with the orthopedic PA patient will need I&D and deep culture. 3we will empirically start the patient on Unasyn and vancomycin while waiting for the workup to be completed and culture to be finalized. We will follow on clinical condition and cultures to further adjust medication if needed Thank you for this consultation we will follow the patient along with you Dictation was produced using [employer] dictation software. please excuse any g rammatical, word or spelling errors. Time with Patient: Greater than 30
--- NOTE | 2024-03-02 17:53 | P.DS ---
Providers Date of admission: 02/21/24 18:50 Expected date of discharge: 02/22/24 Attending physician: Tony Simms MD Consults: 02/22/24 07:31 Consult Physician Routine Consulting Provider: Clarita Frazier Consult Reason/Comments: FINGER INFECTION Do you want consulting provider notified?: Yes 02/22/24 08:46 Consult Physician Routine Consulting Provider: Cory Sloan Consult Reason/Comments: [email or web address] Do you want consulting provider notified?: Yes Primary care physician: Alexandria Ellison [facility] Course: This is a 73-year-old gentleman with past medical history significant for gout times years in elbows, fingers, joints, 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 Frazier, urinary retention, gastroesophageal reflux disease, marijuana use, daily alcohol use with 4-5 beers daily and multiple other medical issues.His home meds include colchicine and allopurinol, reports regular home testing of his uric acid level. Reports he has endured exacerbations of his right pinky on and off over the last 6 years. States on Sunday began to have significant swelling and progressive pain with limited mobility of the affected digit. Proceeded to urgent care, further directed to the ER. Denies injury or trauma of the affected extremity. X-ray reported bony destructive process highly suggestive of osteomyelitis. Afebrile, normal WBC. CRP 2.1. maintained on IV fluid hydration, antibiotics. Electrolytes, renal function, coags within normal limits. Pt left AMA after being evaluated by Ortho. Patient Condition at Discharge: Serious Plan - Discharge Summary Discharge Rx Participant: Yes New Discharge Prescriptions: No Action allopurinoL [Zyloprim] 450 mg PO DAILY Colchicine 0.6 mg PO BID Discharge Medication List Colchicine 0.6 mg PO BID 02/21/24 [History] allopurinoL [Zyloprim] 450 mg PO DAILY 02/21/24 [History] Follow up Appointment(s)/Referral(s): Alexandria Ellison DO [Primary Care Provider] - 1-2 days
== END 2024-02-22 18:12 ==
LOC: EC 13:12 → 6NMEDSUR 18:50
PROVIDERS: ADMIT Family Medicine; ATTEND Family Medicine
DX: M79.644 Pain in right finger(s) (principal); M79.89 Other specified soft tissue disorders; L53.9 Erythematous condition, unspecified; M1A.9XX1 Chronic gout, unspecified, with tophus (tophi); Z53.29 Procedure and treatment not carried out because of patient's decision for other reasons; K21.9 Gastro-esophageal reflux disease without esophagitis; R33.9 Retention of urine, unspecified; Z79.899 Other long term (current) drug therapy
CPT/HCPCS: 96361 ×2; 96365; 96375; 99285; 80053 ×2; 85652; 83605; 83735; 84100; 84550; 85025 ×2; 86140; 87040; 84145; 73140; G0378 ×2; J3370; J1100; J0295; J2470

== ENCOUNTER → 2024-09-01 | Outpatient (CLI) | payer MEDICARE ==
[2024-09-01 20:29] LABS: ALT 31 U/L (10-49); AST 38 U/L (14-35); Albumin 4.1 g/dL (3.8-4.9); Albumin/Globulin Ratio 1.58 Ratio (1.60-3.17); Alkaline Phosphatase 61 U/L (41-126); Blood Urea Nitrogen 26.8 mg/dL (9.0-27.0); Calcium 9.2 mg/dL (8.7-10.3); Carbon Dioxide 24.4 mmol/L (21.6-31.8); Chloride 104 mmol/L (96-109); Globulin 2.6 g/dL (1.6-3.3); Glucose 86 mg/dL (70-110); Potassium 4.5 mmol/L (3.5-5.5); Sodium 140 mmol/L (135-145); Total Bilirubin 0.3 mg/dL (0.3-1.2); Total Protein 6.7 g/dL (6.2-8.2)
[2024-09-01 21:40] LABS: HCT 38.5 % (39.6-50.0); HGB 12.5 g/dL (13.0-17.0); MCH 31.6 pg (27.0-32.0); MCHC 32.5 g/dL (32.0-37.0); MCV 97.5 FL (80.0-97.0); Mean Platelet Volume 11.5 FL (9.5-12.2); NRBC Per 100 WBC 0 X 10*3/uL (0.00-0.01); Platelet Count 379 X 10*3/uL (140-440); RBC 3.95 X 10*6/uL (4.40-5.60); RDW 18.2 % (11.5-14.5); WBC 4.44 X 10*3/uL (4.50-10.00)
== END | disposition home or self-care (01) ==
LOC: LABWHC1 15:38
DX: Z00.00 Encounter for general adult medical examination without abnormal findings (principal); N40.0 Benign prostatic hyperplasia without lower urinary tract symptoms; M10.9 Gout, unspecified; E78.1 Pure hyperglyceridemia; R73.01 Impaired fasting glucose; Z86.2 Personal history of diseases of the blood and blood-forming organs and certain disorders involving the immune mechanism
CPT/HCPCS: 36415; 80053; 83036; 84153; 85027

== ENCOUNTER → 2024-09-16 | Outpatient (CLI) | payer MEDICARE | END | disposition home or self-care (01) | LOC: LABWHC1 15:15 | DX: Z86.2 Personal history of diseases of the blood and blood-forming organs and certain disorders involving the immune mechanism (principal) | CPT/HCPCS: 36415 ==